=== PATIENT | female | born 2000 | race Caucasian/White ===

== ENCOUNTER 2024-01-11 20:16 | Emergency (ER) | payer BC, OTHER, SELFPAY ==
[2024-01-11 20:17] VITALS: BMI 55.4
[2024-01-11 20:20] VITALS: BP 142/77
[2024-01-11] MEDS: PERCOCET 5/325 1 TABLET PO (21:05)
[2024-01-11] MEDS: TORADOL 60 MG IM (21:05)
--- NOTE | 2024-01-11 21:21 | ED.GENMED ---
History of Present Illness
General
Chief Complaint: Musculo-Skeletal Complaint
Source: patient and family
Exam Limitations: none
Time Seen by Provider: 01/11/24 20:32
Nursing documentation reviewed up to this point in time: agreed with
Travel History
Have you had any contact with someone who has COVID-19?: No
Do you have any symptoms of coronavirus? Fever > 100 degrees, chills, cough, shortness of breath, sore throat, loss of taste or smell, muscle aches, or headache?: No
History of Present Illness
History of Present Illness:
23-year-old female right-sided back pain radiating to her buttocks having trouble ambulating called EMS to bring her to the ER had not taken any medications no recent trauma, has had back pain before never this severe, has prediabetes, mental
illness, she has had no fever, does have chronic urinary incontinence which is not new scheduled to see a urologist in the coming weeks
Past History
Past History
ED Past Medical History: Psychiatric
ED Past Surgical History: None
Social History
Tobacco: Vaping
Alcohol: None
Drug: None
Personal: Single
Living: with family
Employment: Employed
Family History
Family History: Diabetes
Review of Systems
Review of Systems
All Other Systems: Not applicable
Constitutional: Denies fever or fatigue
Respiratory: Reports no symptoms
Cardiac: Reports no symptoms
ABD/GI: Reports no symptoms
: Reports incontinence (Chronic finding)
Musculoskeletal: Reports back pain
Neurological: Reports numbness
Phy Exam
Physical Exam
Physical Exam:
Physical Exam
General: 23 female lying prone
Neck:
Heart: s1/s2 regular rate and rhythm, no murmur. equal radial pulses.
Lungs: no acute respiratory distress. clear bilaterally
Neuro: alert and oriented. Moves all extremities, positive straight leg raise on the right at 35 degrees
Skin: no rash
Psychiatric: well kept. interactive and cooperative
Extremities: no edema.
Course
Orders/Labs/Results
Orders:
Orders
01/11/24 20:50
Ketorolac [Toradol] 60 mg IM NOW STA
Oxycodone/Acetaminophen [Percocet 5/325] 1 tablet PO NOW STA
Lumbar Spine, 2 or 3 View [CR Lumbar Spine 2 Or 3 Views] Urgent
Comment:
Reason For Exam: pain
01/11/24 22:18
Diazepam [Valium] 5 mg PO NOW STA
Vital Signs
Initial and Last Documented VS:
Initial Vital Signs
Temp Pulse Resp BP Pulse Ox
98.7 F 92 22 142/77 97
01/11/24 20:20 01/11/24 20:20 01/11/24 20:20 01/11/24 20:20 01/11/24 20:20
Last Documented Vital Signs
Temp Pulse Resp BP Pulse Ox
98.7 F 92 22 142/77 97
01/11/24 20:20 01/11/24 20:20 01/11/24 20:20 01/11/24 20:20 01/11/24 20:20
MDM/Problems Addressed
Differential Diagnosis Includes:
Lumbar radiculopathy, compression fracture deconditioning obesity doubt epidural abscess or discitis cauda equina
MDM/Problems Addressed:
Low back pain
Chronic conditions affecting care:
Obesity mental illness prior back
Acute Exacerbation and/or Progression of Chronic Illness:
Obesity mental illness prior back pain
*Radiology
Radiology exam reviewed: preliminary read by ED provider
*Pulse Oximetry
Patient hypoxic: no
*EKG
Interpreted by ED Provider?: NA
*[place] Interpretation
Rate: [place]- N/A
*Critical Care Note
Total Time (30-74mins, 75-104mins- exclusive of procedures): Not Applicable
Update Note
Update Note:
Update, patient with radicular sounding pain right low back into the buttock, worse with movement does have chronic incontinence, appointment to see urology in the coming weeks
Patient appears improved able to sit up, still has some pain with straight leg raise on the right
ED Attending Note
-
Portions of this chart may have been created with voice recognition software.� Occasional wrong word or��sound alike� substitutions may have occurred due to the inherent limitations of voice recognition software.
Discharge Plan
Departure
Patient Disposition: Home (Routine Discharge)
Date of Disposition: 01/11/24
Time of Disposition: 22:19
Patient with high blood pressure during this ER visit?: No
Condition: Good
Discharge Problem:
Lumbar radicular pain
Instructions: Ibuprofen, Sciatica Exercises, Low Back Pain ED
Prescriptions:
New
ibuprofen 800 mg tablet
800 mg PO Q8H PRN (Reason: Pain) Qty: 20 0RF
oxycodone-acetaminophen [Percocet] 5-325 mg tablet
1 tab PO Q4HPRN PRN (Reason: pain) Qty: 10 0RF
No Action
fluoxetine 20 MG capsule
80 mg PO DAILY
fexofenadine-pseudoephedrine [Melia-D 24 Hour] 1 EACH tablet extended release 24 hr
1 ea PO DAILYPRN PRN (Reason: fever)
lurasidone [Latuda] 60 MG tablet
80 mg PO HS
Bactrim:
1 tab PO BID
Referrals:
Rosalina Wild CRNP [Family Provider] - Next open appointment
Interventions
Interventions:
ED-Musculoskeletal Assessment Last Done: 01/11/24 20:25
Discharge Date and Time
Print Language: [email or web address]
[2024-01-11] MEDS: VALIUM 5 MG PO (22:38)
[2024-01-11 23:07] VITALS: BP 130/87
== END 2024-01-11 23:09 | disposition home or self-care (01) ==
LOC: EMR 20:16
PROVIDERS: EMERGENCY PHYSICIAN Emergency Medicine; FAMILY PHYSICIAN Nurse Practitioner Family
DX: M54.16 Radiculopathy, lumbar region (principal); F17.290 Nicotine dependence, other tobacco product, uncomplicated
CPT/HCPCS: 99284; 96372; 72100